=== PATIENT | male | born 1995 ===

== ENCOUNTER 2017-08-30 02:51 | Emergency (ER) | payer SELFPAY ==
--- NOTE | 2017-08-30 03:27 | ED PDOC ---
Arrival/HPI - General Chief Complaint: Substance Abuse Time Seen by Provider: 08/30/17 03:02 Historian: Patient, EMS EM Caveat: Acuity of Condition - History of Present Illness Narrative History of Present Illness (Text): 08/30/17 03:18 21 year old male, with no significant past medical history, presents to the emergency department via [facility] for AMS. As per EMS, a family member found the patient unresponsive. When EMS arrived, the patient was awake and talking, but was not responding to questions properly. Patient was drinking rum and smoking wood. HPI and ROS limited due to acuity of condition. Past Medical History - Provider Review Nursing Documentation Reviewed: Yes - Infectious Disease Hx of Infectious Diseases: None - Psychiatric Hx Substance Use: Yes - Anesthesia Hx Anesthesia: No Family/Social History - Physician Review Nursing Documentation Reviewed: Yes Family/Social History: No Known Family HX Smoking Status: Never Smoked Hx Alcohol Use: No Hx Substance Use: Yes Allergies/Home Meds Allergies/Adverse Reactions: Allergies No Known Allergies Allergy (Verified 08/30/17 03:01) Home Medications: Home Meds Medication Instructions Recorded Confirmed Unobtainable 08/30/17 08/30/17 Review of Systems - Physician Review All systems were reviewed & negative as marked: Yes - Review of Systems Systems not reviewed;Unavailable: Acuity of Condition Physical Exam Vital Signs Reviewed: Yes Vital Signs Temp Pulse Resp BP Pulse Ox 08/30/17 06:26 97.7 F 86 18 130/89 98 08/30/17 06:23 97.7 F 86 18 130/89 98 08/30/17 05:57 97.9 F 83 18 130/80 98 08/30/17 04:04 125 H 20 08/30/17 04:02 98.1 F 108 H 18 122/78 99 Temperature: Afebrile Blood Pressure: Normal Pulse: Tachycardic Respiratory Rate: Normal Appearance: Positive for: Well-Appearing, Non-Toxic, Comfortable Pain Distress: None Mental Status: Positive for: Alert and Oriented X 3 - Systems Exam Head: Present: Atraumatic, Normocephalic Pupils: Present: PERRL Extroacular Muscles: Present: EOMI Conjunctiva: Present: Normal Mouth: Present: Moist Mucous Membranes Neck: Present: Normal Range of Motion Respiratory/Chest: Present: Clear to Auscultation, Good Air Exchange. No: Respiratory Distress, Accessory Muscle Use Cardiovascular: Present: Regular Rate and Rhythm, Normal S1, S2. No: Murmurs Abdomen: No: Tenderness, Distention, Peritoneal Signs Back: Present: Normal Inspection Upper Extremity: Present: Normal Inspection. No: Cyanosis, Edema Lower Extremity: Present: Normal Inspection. No: Edema Neurological: Present: GCS=15, CN II-XII Intact, Speech Normal Skin: Present: Warm, Dry, Normal Color. No: Rashes Psychiatric: Present: Alert, Oriented x 3, Normal Insight, Normal Concentration Medical Decision Making ED Course and Treatment: 08/30/17 03:15 Impression: 21 year old male presents for AMS. Patient was drinking rum and smoking weed. Plan: -- Labs -- Urinalysis -- Reassess and disposition Progress Notes: 08/30/17 04:17 EKG shows Sinus tachycardia at 106 BPM. Interpreted by me. Re-evaluation Time: 06:35 Reassessment Condition: Re-examined, Improved - Lab Interpretations Lab Results: 08/30/17 03:20 08/30/17 03:20 Lab Results 08/30/17 03:20: Alcohol, Quantitative 176 H 08/30/17 03:20: Salicylates < 1 L, Acetaminophen < 10.0 L 08/30/17 03:20: Sodium 151 H, Potassium 3.7, Chloride 107, Carbon Dioxide 20 L, Anion Gap 28 H, BUN 12, Creatinine 1.0, Est GFR ( Amer) > 60, Est GFR ( Non-Af Amer) > 60, Random Glucose 153 H, Calcium 8.9, Magnesium 2.0, Total Bilirubin 0.2, AST 33, ALT 40, Alkaline Phosphatase 108, Total Protein 8.4 H, Albumin 5.1 H, Globulin 3.2, Albumin/Globulin Ratio 1.6 08/30/17 03:20: WBC 20.0 H, RBC 5.92, Hgb 15.2, Hct 46.1, MCV 77.9 L, MCH 25.7, MCHC 33.0, RDW 14.6 H, Plt Count 214, MPV 11.8 H, Gran % 66.9, Lymph % (Auto) 27.8, [place] % (Auto) 4.0, Eos % (Auto) 0.9 L, Baso % (Auto) 0.4, Gran # 13.38 H, Lymph # (Auto) 5.6 H, [place] # (Auto) 0.8 H, Eos # (Auto) 0.2, Baso # (Auto) 0.07 I have reviewed the lab results: Yes - Scribe Statement The provider has reviewed the documentation as recorded by the Philippibyoav Steiner Provider Scribe Attestation: All medical record entries made by the Scribe were at my direction and personally dictated by me. I have reviewed the chart and agree that the record accurately reflects my personal performance of the history, physical exam, medical decision making, and the department course for this patient. I have also personally directed, reviewed, and agree with the discharge instructions and disposition. Disposition/Present on Arrival - Present on Arrival Any Indicators Present on Arrival: No History of DVT/PE: No History of Uncontrolled Diabetes: No Urinary Catheter: No History of Decub. Ulcer: No History Surgical Site Infection Following: None - Disposition Have Diagnosis and Disposition been Completed?: Yes Diagnosis: Alcohol intoxication Disposition: HOME/ ROUTINE Disposition Time: 06:35 Condition: GOOD Discharge Instructions (ExitCare): Alcohol Abuse and Alcoholism (DC) Referrals: PCP,NO [Primary Care Provider] - Follow up with primary Forms: [employer] (Croatian)
[2017-08-30 03:35] LABS: BASO # 0.07 K/mm3 (0.0-2.0); BASO % 0.4 % (0.0-3.0); EOS # 0.2 (0.0-0.7); EOS % 0.9 % (1.5-5.0); GRAN # 13.38 (1.4-6.5); GRAN % 66.9 % (50.0-68.0); HEMOGLOBIN 15.2 g/dL (14.0-18.0); LYMPH # 5.6 (1.2-3.4); LYMPH % 27.8 % (22.0-35.0); MEAN CELL VOLUME 77.9 fl (80.0-105.0); MEAN CORPUSCULAR HEMOGLOBIN 25.7 pg (25.0-35.0); MEAN PLATELET VOLUME 11.8 fl (7.0-11.0); MONO # 0.8 (0.1-0.6); RBC 5.92 10^6/uL (3.5-6.1); RED CELL DISTRIBUTION WIDTH 14.6 % (11.5-14.5)
[2017-08-30 03:51] LABS: ACETAMINOPHEN < 10.0 ug/ml (10.0-20.0); ALB/GLOB RATIO 1.6 (1.1-1.8); ALBUMIN 5.1 g/dL (3.0-4.8); ALT/SGPT 40 U/L (7-56); AST/SGOT 33 U/L (17-59); BLOOD UREA NITROGEN 12 mg/dL (7-21); CALCIUM 8.9 mg/dL (8.4-10.5); GFR AFRICAN-AMERICAN > 60; GFR NON-AFRICAN AMERICAN > 60; SALICYLATE < 1 mg/dL (2.0-20.0)
[2017-08-30 05:57] VITALS: RESP 18; O2SAT 98
[2017-08-30 06:25] VITALS: BP 130/89; PULSE 86; TEMP 97.7
--- NOTE | 2017-08-30 13:06 | CARD ---
APPROVED REPORT EKG Measurement Heart [id number] <Conclusion> Sinus tachycardia Possible Left atrial enlargement Borderline ECG
== END 2017-08-30 06:23 | disposition home or self-care (01) ==
LOC: ED 02:51
DX: F10.129 Alcohol abuse with intoxication, unspecified (principal); Y90.6 Blood alcohol level of 120-199 mg/100 ml; F19.10 Other psychoactive substance abuse, uncomplicated
CPT/HCPCS: 80053; 83735; 85025; 93005; 99284; G0480

== ENCOUNTER 2018-06-27 15:20 | Emergency (ER) | payer SELFPAY ==
--- NOTE | 2018-06-27 15:41 | ED PDOC ---
Arrival/HPI - General Chief Complaint: Chest Pain Time Seen by Provider: 06/27/18 15:27 Historian: Patient, Parent, Employment Programs Analyst (Bilingual nurse translates) - History of Present Illness Time/Duration: Other (This morning) Symptom Onset: Gradual Symptom Course: Worsening Quality: Other (Numbness) Severity Level: Moderate Activities at Onset: Rest Associated Symptoms (Text): 06/27/18 15:38 Patient complains of left-sided chest pain with radiation to his back. Made worse by coughing. No injury or trauma. Pain feels like numbness. No dyspnea. No diaphoresis. No nausea or vomiting. Some lightheadedness. He has never experienced this previously. No fever or chills. No abdominal pain. Past Medical History - Infectious Disease Hx of Infectious Diseases: None - Psychiatric Hx Substance Use: Yes - Anesthesia Hx Anesthesia: No Family/Social History - Physician Review Nursing Documentation Reviewed: Yes Family/Social History: Unknown Family HX Smoking Status: Former Smoker (Quit smoking 1 year ago) Hx Alcohol Use: Yes Frequency of alcohol use: Socially Hx Substance Use: No Allergies/Home Meds Allergies/Adverse Reactions: Allergies No Known Allergies Allergy (Verified 06/27/18 15:36) Review of Systems - Physician Review All systems were reviewed & negative as marked: Yes - Review of Systems Constitutional: absent: Fatigue, Fevers Respiratory: Cough. absent: SOB, Sputum, Wheezing Cardiovascular: Chest Pain. absent: Palpitations, Syncope Gastrointestinal: absent: Abdominal Pain, Constipation, Diarrhea, Nausea, Vomiting Neurological: Dizziness. absent: Headache, Focal Weakness, Gait Changes Physical Exam Vital Signs Temp Pulse Resp BP Pulse Ox 06/27/18 15:32 97.6 F 77 18 136/103 H 99 Temperature: Afebrile Blood Pressure: Hypertensive Pulse: Regular Respiratory Rate: Normal Appearance: Positive for: Well-Appearing, Non-Toxic, Uncomfortable Pain Distress: Mild Mental Status: Positive for: other (Awake alert and cooperative.) - Systems Exam Head: Present: Atraumatic, Normocephalic Pupils: Present: PERRL Extroacular Muscles: Present: EOMI Conjunctiva: Present: Normal Mouth: Present: Moist Mucous Membranes Pharnyx: No: ERYTHEMA, EXUDATE, TONSILS ENLARGED Neck: Present: Normal Range of Motion Respiratory/Chest: Present: Clear to Auscultation, Good Air Exchange. No: Respiratory Distress, Accessory Muscle Use, Wheezes, Decreased Breath Sounds, Rales, Retracting, Rhonchi, Tachypneic, Tender to Palpation Cardiovascular: Present: Regular Rate and Rhythm, Normal S1, S2. No: Murmurs Abdomen: No: Tenderness, Distention, Peritoneal Signs, Rebound, Guarding Back: Present: Normal Inspection Upper Extremity: Present: Normal Inspection. No: Cyanosis, Edema Lower Extremity: Present: Normal Inspection. No: Edema, CALF TENDERNESS, Tenderness, Swelling Neurological: Present: GCS=15, CN II-XII Intact, Speech Normal, Motor Func Grossly Intact Skin: Present: Warm, Dry, Normal Color. No: Rashes Psychiatric: Present: Alert, Normal Insight, Normal Concentration Medical Decision Making ED Course and Treatment: 06/27/18 15:40 EKG shows normal sinus rhythm rate approximately [address] or T wave changes. 06/27/18 17:39 Employment Programs Analyst reports pain is markedly improved post Toradol. Workup is unremarkable including d-dimer and x-ray. Discharged home accompanied by mother. Prescription for Naprosyn given. Follow-up in ER as needed. Follow-up with the PMD. - RAD Interpretation Radiology Orders: Chest one view as read by the radiologist shows no infiltrate effusion cardiomegaly or pneumothorax. Varnish Melter Helper: Radiologist Disposition/Present on Arrival - Present on Arrival Any Indicators Present on Arrival: No History of DVT/PE: No History of Uncontrolled Diabetes: No Urinary Catheter: No History of Decub. Ulcer: No History Surgical Site Infection Following: None - Disposition Have Diagnosis and Disposition been Completed?: Yes Diagnosis: Pleuritic chest pain Disposition: HOME/ ROUTINE Disposition Time: 17:39 Patient Plan: Discharge Condition: IMPROVED Discharge Instructions (ExitCare): Pleuritic Chest Pain, Chest Pain (ED) Prescriptions: Naproxen [Naprosyn] 500 mg PO BID #14 tab Referrals: [facility] [Outside] - Follow up with primary [facility] [Outside] - Follow up with primary Forms: [employer] (Hungarian)
--- NOTE | 2018-06-27 16:05 | RAD ---
Date of service: 06/27/2018 HISTORY: Chest pain. COMPARISON: No prior. FINDINGS: LUNGS: No active pulmonary disease. PLEURA: No significant pleural effusion identified, no pneumothorax apparent. CARDIOVASCULAR: No atherosclerotic calcification present Normal. OSSEOUS STRUCTURES: No significant abnormalities. VISUALIZED UPPER ABDOMEN: Normal. OTHER FINDINGS: None. IMPRESSION: No active disease.
[2018-06-27 16:31] LABS: BASO # 0.04 K/mm3 (0.0-2.0); BASO % 0.5 % (0.0-3.0); EOS # 0.2 (0.0-0.7); EOS % 2.1 % (1.5-5.0); HEMOGLOBIN 14.3 g/dL (14.0-18.0); LYMPH # 2.6 (1.2-3.4); LYMPH % 32.1 % (22.0-35.0); MEAN CELL VOLUME 79.5 fl (80.0-105.0); MEAN CORPUSCULAR HEMOGLOBIN 25.8 pg (25.0-35.0); MEAN CORPUSCULAR HGB CONC 32.4 g/dl (31.0-37.0); MONO # 0.6 (0.1-0.6); MONO % 6.8 % (1.0-6.0); RBC 5.55 10^6/uL (3.5-6.1); RED CELL DISTRIBUTION WIDTH 13.9 % (11.5-14.5); WHITE BLOOD COUNT 8.1 10^3/uL (4.5-11.0)
[2018-06-27 16:36] LABS: INR 1.03; PARTIAL THROMBOPLASTIN TIME 29.8 Seconds (26.9-38.3); PROTHROMBIN TIME 11.4 SECONDS (9.4-12.5)
[2018-06-27 16:37] LABS: ALB/GLOB RATIO 1.3 (1.1-1.8); ALBUMIN 4.8 g/dL (3.0-4.8); ALT/SGPT 27 U/L (7-56); AST/SGOT 32 U/L (17-59); BLOOD UREA NITROGEN 8 mg/dL (7-21); CALCIUM 9.9 mg/dL (8.4-10.5); GFR NON-AFRICAN AMERICAN > 60
[2018-06-27 16:47] LABS: TROPONIN I < 0.01 ng/mL
[2018-06-27 17:56] VITALS: BP 117/68; PULSE 71; RESP 20; TEMP 98.5; O2SAT 99
--- NOTE | 2018-06-28 09:51 | CARD ---
APPROVED REPORT Date of service: 06/27/2018 EKG Measurement Heart [id number] <Conclusion> Normal sinus rhythm Normal ECG
== END 2018-06-27 17:51 | disposition home or self-care (01) ==
LOC: ED 15:20
DX: R07.81 Pleurodynia (principal)
CPT/HCPCS: 71045; 80053; 82550; 83615; 83735; 84484; 85025; 85378; 85610; 85730; 93005; 96374; 99283; J1885